=== PATIENT | male | born 1995 | race Caucasian/White ===

== ENCOUNTER 2018-07-28 04:52 | Emergency (ER) ==
[2018-07-28 05:05] VITALS: BP 145/81; BMI 23.1
[2018-07-28] MEDS ORDERED: ZOFRAN 4 MG/2 ML IVP STA (05:24)
[2018-07-28] MEDS ORDERED: MORPHINE 4 MG/ML VIAL IVP STA (05:24)
--- NOTE | 2018-07-28 05:31 | ED.PDOC ---
General Stated Complaint: Patient is a 23 year old male who comes to the ER with complaints of right lower quadrant pain radiating to the back. He has not been able to eat much. He has been vomiting multiple times last of which was at 3 am. Abdominal pain is worse. Time Seen by Physician: 05:28 Mode of Arrival: Ambulance Information Source: Patient Exam Limitations: No limitations Nursing and Triage Documentation Reviewed and Agree: Yes Does patient meet sepsis criteria?: Yes (Placed an order of Procalcitonin and Lactic acid and Blood cultures ) If yes, has appropriate treatment been initiated?: Yes (Normal saline ) System Inflammatory Response Syndrome: Pulse >90 BPM, Resp >20/Minute <ALEX KENNY - Last Filed: 07/28/18 06:48> <CISCO GALEAS - Last Filed: 07/28/18 08:30> ED Provider: Dr. CISCO GALEAS Chief Complaint: Abdominal Pain Primary Care Provider: CHIDI RANDALL Sepsis Protocol: For patient's 13 years and over: Temp is 96.8 and below OR 101 and greater Pulse >90 BPM Resp >20/minute Acutely Altered Mental Status Are patient's symptoms suggestive of a new infection, such as: -Pneumonia -Skin, Soft Tissue -Endocarditis -UTI -Bone, Joint Infection -Implantable Device -Acute Abdominal Infection -Wound Infection -Meningitis -Blood Stream Catheter Infection -Unknown GI Complaint Exam - Abdominal Pain Complaint/Exam Onset: Gradual Duration: 1 day Symptoms Are: Still present Timing: Constant Initial Severity: Moderate Current Severity: Severe Location of Pain: RLQ Radiates To: Reports: Flank Character: Reports: Aching, Throbbing Aggravating: Reports: Movement, Food Alleviating: Reports: None Associated Signs and Symptoms: Reports: Back pain, Nausea, Vomiting AAA Risk Factors: Reports: None Cardiac Risk Factors: Reports: None Testicular Torsion Risk Factors: Reports: None Surgical Obstruction Risk Factors: Reports: None Related Surgical History: Reports: None Abdominal Findings: Present: Rebound tenderness, Peritoneal signs, McBurney's Point tender, CVA Tenderness Differential Diagnoses: Appendicitis, Bowel Obstruction, Constipation, Diverticulitis, Other (Pyelonephritis) <ALEX KENNY - Last Filed: 07/28/18 06:48> Review of Systems - Review Of Systems Constitutional: Reports: Loss of appetite Eyes: Reports: No symptoms Ears, Nose, Mouth, Throat: Reports: No symptoms Respiratory: Reports: No symptoms Cardiac: Reports: No symptoms GI: Reports: Abdominal pain, Nausea, Poor appetite, Vomiting Musculoskeletal: Reports: Back pain (right flank area ) Skin: Reports: No symptoms Neurological: Reports: Anxiety Endocrine: Reports: No symptoms Hematologic/Lymphatic: Reports: No symptoms All Other Systems: Reviewed and Negative <BENJAMINMARBELLAALEX - Last Filed: 07/28/18 06:48> Past Medical History - Past Medical History Previously Healthy: Yes Endocrine: Reports: None Cardiovascular: Reports: Other (Heart murmur ) Respiratory: Reports: Asthma Hematological: Reports: None Gastrointestinal: Reports: None Genitourinary: Reports: None Neuro/Psych: Reports: Migraine, Anxiety, Depression, Other (ADHD ) Musculoskeletal: Reports: None Cancer: Reports: None - Surgical History General Surgical History: Reports: Orthopedic (right pinky finge ) - Family History Family History: Reports: Unknown - Social History Smoking Status: Current every day smoker, Light tobacco smoker Hx Substance Use: No Alcohol Screening: None - Immunizations Tetanus Shot up to Date: (UNKNOWN) <ALEX KENNY - Last Filed: 07/28/18 06:48> Physical Exam - Physical Exam Appearance: Ill-appearing Ill-appearing: Moderate Pain Distress: Severe Eyes: TIA, EOMI, Conjunctiva clear Neck: Supple Respiratory: Airway patent, Breath sounds clear, Breath sounds equal, Respirations nonlabored Cardiovascular: RRR, Pulses normal, No rub, No murmur GI/: No masses, Bowel sounds normal, Tender Musculoskeletal: Normal strength, ROM intact, No edema, No calf tenderness Skin: Warm, Dry, Normal color Neurological: Sensation intact, Motor intact, Cranial nerves intact, Alert, Oriented Psychiatric: Anxious <ALEX KENNY - Last Filed: 07/28/18 06:48> Interpretation - Radiology Interpretation Radiology Interpretation By: Radiologist Radiology Results: Positive (pyelonephritis) Exam Interpreted: CT Scan <ALEX KENNY - Last Filed: 07/28/18 06:48> - Gallery Host Rate: Normal Rhythm: Sinus Ectopy: None - EKG Interpretation Rate: Normal Rhythm: Sinus Ectopy: None [place]: NL ST Segment: Other (PTOLONED QT INTERVAL .) <CISCO GALEAS - Last Filed: 07/28/18 08:30> Re-Evaluation - Re-Evaluation Time of Re-Evaluation: 06:49 Status: Improved (pain better ) Vital Signs Stable: Yes <ALEX KENNY - Last Filed: 07/28/18 06:48> - Re-Evaluation Time of Re-Evaluation: 07:00 (ADAL TOOK OVER CARE AT 7AM EKG ORDERED SECOND LITTER OF FLUID INITATED , SECOND ANTIBIOTIC ORDERED ) Status: Improved Vital Signs Stable: Yes Pain Level: 5/10 RLQ Appearance: NAD Skin: Warm and Dry Neuro: Alert and Oriented X3 CV: RRR <TUYETANDREACISCO - Last Filed: 07/28/18 08:30> Physician Notification - Case Discussed Endorsed To/Discussed With: Dr Williamson Time of Discussion: 07:00 <EFRAÍNALEX - Last Filed: 07/28/18 06:48> - Case Discussed Physician Notified: jose manuel MACEDO Time of Notification: 08:30 (TRANSFER NOW) <ADALCISCO - Last Filed: 07/28/18 08:30> Critical Care Note - Critical Care Note Total Time (mins): 45 (sepsis managment.) <EFRAÍNALEX - Last Filed: 07/28/18 06:48> - Critical Care Note Total Time (mins): 1 <CISCO GALEAS - Last Filed: 07/28/18 08:30> Course - Course Hematology/Chemistry: 07/28/18 05:45 07/28/18 05:45 <EFRAÍNALEX - Last Filed: 07/28/18 06:48> - Course Hematology/Chemistry: 07/28/18 05:45 07/28/18 05:45 <CISCO GALEAS - Last Filed: 07/28/18 08:30> - Course Orders, Labs, Meds: Lab Review 07/28/18 07/28/18 07/28/18 05:45 05:45 05:45 WBC 22.94 H RBC 5.41 Hgb 16.6 Hct 46.1 MCV 85.2 MCH 30.7 MCHC 36.0 H RDW Coeff of Sera 12.1 Plt Count 222 Immature Gran % (Auto) 0.8 Neut % (Auto) 86.9 Lymph % (Auto) 3.9 L [place] % (Auto) 7.9 Eos % (Auto) 0.3 Baso % (Auto) 0.2 Immature Gran # (Auto) 0.2 Neut # (Auto) 19.9 H Lymph # (Auto) 0.9 [place] # (Auto) 1.8 Eos # (Auto) 0.1 Baso # (Auto) 0.1 Puncture Site O2 Saturation ABG pH ABG pCO2 ABG pO2 ABG HCO3 ABG Total CO2 ABG Base Excess Stone Test FiO2 % Sodium 139.0 Potassium 2.90 L Chloride 101.0 Carbon Dioxide 23.0 Anion Gap 17.90 BUN 12.0 Creatinine 0.90 Estimated GFR (MDRD) 107.00 BUN/Creatinine Ratio 13.33 Glucose 116.0 H Lactic Acid Calcium 10.30 H Total Bilirubin 1.30 AST 27.0 ALT 27.0 Alkaline Phosphatase 67.0 Total Protein 8.10 Albumin 4.70 Globulin 3.40 Albumin/Globulin Ratio 1.38 Amylase 49.0 Lipase 13.0 L Procalcitonin 18.36 Urine Color Urine Clarity Urine pH Ur Specific [place] Urine Protein Urine Glucose (UA) Urine Ketones Urine Blood Urine Nitrite Urine Bilirubin Urine Urobilinogen Ur Leukocyte Esterase Urine Microscopic RBC Urine Microscopic WBC Ur Squamous Epith Cells Ur Renal Epithelial Cell Urine Bacteria 07/28/18 07/28/18 07/28/18 05:45 06:30 07:22 WBC RBC Hgb Hct MCV MCH MCHC RDW Coeff of Sera Plt Count Immature Gran % (Auto) Neut % (Auto) Lymph % (Auto) [place] % (Auto) Eos % (Auto) Baso % (Auto) Immature Gran # (Auto) Neut # (Auto) Lymph # (Auto) [place] # (Auto) Eos # (Auto) Baso # (Auto) Puncture Site R brach O2 Saturation 98.0 ABG pH 7.426 ABG pCO2 32.3 L ABG pO2 97.0 ABG HCO3 21.3 L ABG Total CO2 22 ABG Base Excess -3 L Stone Test + FiO2 % 21.0 Sodium Potassium Chloride Carbon Dioxide Anion Gap BUN Creatinine Estimated GFR (MDRD) BUN/Creatinine Ratio Glucose Lactic Acid 2.40 H Calcium Total Bilirubin AST ALT Alkaline Phosphatase Total Protein Albumin Globulin Albumin/Globulin Ratio Amylase Lipase Procalcitonin Urine Color Dark Urine Clarity Slightly Urine pH >=9.0 Ur Specific [place] 1.015 Urine Protein 3+ Urine Glucose (UA) Negative Urine Ketones 3+ Urine Blood 2+ Urine Nitrite Negative Urine Bilirubin 1+ Urine Urobilinogen 1.0 Ur Leukocyte Esterase Trace Urine Microscopic RBC 20-30 Urine Microscopic WBC 0-2 Ur Squamous Epith Cells 0-2 Ur Renal Epithelial Cell 0-2 Urine Bacteria Trace Orders Category Date Time Status ABG DRAW REQUEST Stat CARDIO 07/28/18 07:22 Completed EKG-(ED ONLY) Stat CARDIO 07/28/18 07:21 Completed ED IV/MEDIPORT/POWERPORT .ONCE EMERGENCY 07/28/18 05:24 Active ABG Stat LAB 07/28/18 07:22 Completed AMYLASE Stat LAB 07/28/18 05:45 Completed BLOOD CULTURE (ED ONLY) Stat LAB 07/28/18 05:45 Received CBC W/ AUTO DIFF Stat LAB 07/28/18 05:45 Completed COMPREHENSIVE METABOLIC PANEL Stat LAB 07/28/18 05:45 Completed LACTIC ACID Stat LAB 07/28/18 05:45 Completed LIPASE Stat LAB 07/28/18 05:45 Completed PROCALCITONIN Stat LAB 07/28/18 05:45 Completed URINALYSIS C & S IF INDICATED Stat LAB 07/28/18 06:30 Completed 0.9 % Sodium Chloride [Saline Flush] MEDS 07/28/18 05:24 Active 1 syr IVF PRN PRN Hydromorphone HCl [Dilaudid 0.5 mg/0.5 ml Syringe] MEDS 07/28/18 07:24 Discontinued 0.5 mg IVP ONCE STA Hydromorphone HCl [Dilaudid 1 mg/ml Syringe] MEDS 07/28/18 06:11 Discontinued 1 mg IVP ONCE STA Levofloxacin/D5w [Levaquin] 100 ml MEDS 07/28/18 06:17 Discontinued IV .STK-MED Levofloxacin/D5w [Levaquin] 500 mg MEDS 07/28/18 06:10 Discontinued Premix 100 ml D5w 1 bag IV ONCE Morphine Sulfate [Morphine 4 mg/ml Syringe] MEDS 07/28/18 05:43 Discontinued 4 mg .ROUTE .STK-MED ONE Morphine Sulfate [Morphine 4 mg/ml Vial] MEDS 07/28/18 05:24 Discontinued 4 mg IVP ONCE STA Ondansetron HCl/Pf [Zofran 4 mg/2 ml] MEDS 07/28/18 05:24 Discontinued 4 mg IVP ONCE STA Piperacillin Sodium/Tazobactam [Zosyn 4.5 gm] 4.5 gm MEDS 07/28/18 07:20 Discontinued 0.9 % Sodium Chloride [Sodium Chloride] 100 ml IV ONCE Potassium Chloride [K-Dur] MEDS 07/28/18 06:54 Discontinued 40 meq PO ONCE STA Potassium Chloride [Potassium Chloride Premix Run] 10 MEDS 07/28/18 07:20 Discontinued meq Premix 100 ml Water 1 bag IV ONCE Potassium Chloride [Potassium Chloride Premix Run] 100 MEDS 07/28/18 07:32 Discontinued ml IV .STK-MED Ringers Lactated Solution [Lactated Ringers] 1,000 ml MEDS 07/28/18 06:22 Discontinued IV BOLUS Sodium Chloride 0.9% [Sodium Chloride] 1,000 ml MEDS 07/28/18 05:[address] ABD/PEL WO RENAL STONE PROT Stat RADS 07/28/18 05:24 Completed Medications Generic Name Dose Route Start Last Admin Trade Name Freq PRN Reason Stop Dose Admin Sodium Chloride 1 syr 07/28/18 05:24 Saline Flush IVF PRN PRN To flush IV Discontinued Medications Generic Name Dose Route Start Last Admin Trade Name Freq PRN Reason Stop Dose Admin Hydromorphone HCl 1 mg 07/28/18 06:11 07/28/18 06:20 Dilaudid 1 Mg/Ml Syringe IVP 07/28/18 06:12 1 mg ONCE STA Administration Hydromorphone HCl 0.5 mg 07/28/18 07:24 07/28/18 07:36 Dilaudid 0.5 Mg/0.5 Ml Syringe IVP 07/28/18 07:25 0.5 mg ONCE STA Administration Sodium Chloride 1,000 mls @ 1,000 mls/hr 07/28/18 05:49 07/28/18 05:45 Sodium Chloride IV 07/28/18 06:48 1,000 mls/hr BOLUS STA Administration Levofloxacin/Dextrose 500 mg/ 100 mls @ 100 mls/hr 07/28/18 06:10 07/28/18 06 :23 Dextrose IV 07/28/18 07:09 100 mls/hr ONCE STA Administration Lactated Ringer's 1,000 mls @ 1,000 mls/hr 07/28/18 06:22 07/28/18 06:49 Lactated Ringers IV 07/28/18 07:21 1,000 mls/hr BOLUS STA Administration Potassium Chloride 10 meq/ 100 mls @ 100 mls/hr 07/28/18 07:20 Sterile Water IV 07/28/18 08:19 ONCE STA Piperacillin Sod/Tazobactam 100 mls @ 100 mls/hr 07/28/18 07:20 07/28/18 07: 47 Sod 4.5 gm/ Sodium Chloride IV 07/28/18 08:19 100 mls/hr ONCE STA Administration Morphine Sulfate 4 mg 07/28/18 05:24 07/28/18 05:52 Morphine 4 Mg/Ml Vial IVP 07/28/18 05:25 Not Given ONCE STA Ondansetron HCl 4 mg 07/28/18 05:24 07/28/18 05:48 Zofran 4 Mg/2 Ml IVP 07/28/18 05:25 4 mg ONCE STA Administration Potassium Chloride 40 meq 07/28/18 06:54 07/28/18 07:06 K-Dur PO 07/28/18 06:55 40 meq ONCE STA Administration Vital Signs: Temp Pulse Resp BP Pulse Ox 07/28/18 06:34 98.4 F 07/28/18 04:53 97.2 F L 98 H 28 H 145/81 H 100 Departure - Departure Time of Disposition: 07:00 Pt referred to PMD for follow-up: Yes IPMP verified?: No <ALEX KENNY - Last Filed: 07/28/18 06:48> - Departure Disposition Discussed With: Patient <CISCO GALEAS - Last Filed: 07/28/18 08:30> - Departure Disposition: ADMITTED INPATIENT Discharge Problem: Pyelonephritis, Hypokalemia, Abdominal pain Sepsis Qualifiers: Sepsis type: sepsis due to unspecified organism Qualified Code(s): A41.9 - Sepsis, unspecified organism Condition: Good Allergies/Adverse Reactions: Allergies No Known Allergies Allergy (Verified 07/28/18 05:05) Home Medications: Ambulatory Orders Brexpiprazole [Rexulti] 1 mg PO DAILY 07/28/18 Escitalopram Oxalate [Lexapro] 20 mg PO DAILY 07/28/18 Prazosin HCl 2 mg PO BEDTIME 07/28/18 Quetiapine Fumarate [Seroquel] 50 mg PO BEDTIME 07/28/18
[2018-07-28] MEDS ORDERED: MORPHINE 4 MG/ML SYRINGE ONE (05:43)
[2018-07-28] MEDS ORDERED: SODIUM CHLORIDE 1,000 ML IV STA ×2 (05:49→08:31)
[2018-07-28] MEDS ORDERED: LEVAQUIN 500 MG in PREMIX 100 ML D5W 1 BAG IV STA (06:10)
[2018-07-28] MEDS ORDERED: DILAUDID 1 MG/ML SYRINGE IVP STA (06:11)
[2018-07-28] MEDS ORDERED: LEVAQUIN 100 ML IV ONE (06:17)
--- NOTE | 2018-07-28 06:17 | CT ---
EXAM: CT scan abdomen pelvis without contrast HISTORY: Right-sided pain COMPARISON: None. FINDINGS: Contiguous axial images obtained from lung bases to the symphysis pubis without contrast u tilizing 3-mm collimation. Sagittal and coronal reconstructions were imaged and reviewed. Visualized lung bases are clear. There is trace pericardial effusion measuring 7 mm. The gallbladder is fluid filled without cholelithiasis. There is mild fatty infiltration of the liver with enlargement of the right lobe which may represent normal variant. The pancreas, spleen and adrenal glands have normal unenhanced CT appearance The abdominal aorta is normal in course and caliber.. There is partial vis ualization of the appendix which appears normal. There is abnormal thickening with surrounding inflam mation involving the hepatic flexure and distal descending colon suggesting colitis. The left kidney is unremarkable. Mild inflammatory changes are seen adjacent to the right renal hilum and proximal u reter with stranding and fluid inferiorly within the perinephric space. No discrete bladder abnorma lities identified. IMPRESSION: Trace pericardial effusion. Inflammatory changes are seen adjacent to the right renal hilum with associated perinephric fluid and inflammation without hydronephrosis or nephrolithiasis.. Consider pyelonephritis. Thickening and inflammation is seen at the level of the hepatic flexure and distal ascending colon crespo ggesting colitis. There is partial visualization of the appendix which appears normal. Results were conveyed via telephone to the emergency room physician 6:12 a.m. 07/28/2018
[2018-07-28] MEDS ORDERED: LACTATED RINGERS 1,000 ML IV STA (06:22)
[2018-07-28 06:35] VITALS: TEMP 98.4
[2018-07-28] MEDS ORDERED: K-DUR PO STA (06:54)
[2018-07-28] MEDS ORDERED: ZOSYN 4.5 GM 4.5 GM in SODIUM CHLORIDE 100 ML IV STA (07:20)
[2018-07-28] MEDS ORDERED: POTASSIUM CHLORIDE PREMIX RUN 10 MEQ in PREMIX 100 ML WATER 1 BAG IV STA (07:20)
[2018-07-28] MEDS ORDERED: DILAUDID 0.5 MG/0.5 ML SYRINGE IVP STA (07:24)
[2018-07-28] MEDS ORDERED: POTASSIUM CHLORIDE PREMIX RUN 100 ML IV ONE (07:32)
== END 2018-07-28 09:10 | disposition short-term general hospital (02) ==
LOC: ED 04:52
DX: N12 Tubulo-interstitial nephritis, not specified as acute or chronic (principal); A41.9 Sepsis, unspecified organism; E87.6 Hypokalemia; R10.9 Unspecified abdominal pain; M54.9 Dorsalgia, unspecified; F17.210 Nicotine dependence, cigarettes, uncomplicated
CPT/HCPCS: 36415; 74176; 80053; 81001; 82150; 82803; 83605; 83690; 84145; 85025; 87040; 87070; 87186; 93005; 93010; 96361; 96365; 96367; 96368; 96375; 96376; 99285

== ENCOUNTER 2018-07-28 09:15 | Outpatient (CLI) ==
[2018-07-28 05:05] VITALS: BMI 23.1
== END 2018-07-28 09:38 | disposition short-term general hospital (02) ==
LOC: AMBL 09:15
PROVIDERS: ATTEND Internal Medicine
DX: A41.9 Sepsis, unspecified organism (principal); E87.6 Hypokalemia; N12 Tubulo-interstitial nephritis, not specified as acute or chronic; R10.31 Right lower quadrant pain; R11.10 Vomiting, unspecified

== ENCOUNTER 2018-09-25 14:01 | Outpatient (CLI) | END 2018-09-25 14:18 | disposition short-term general hospital (02) | LOC: AMBL 14:01 | PROVIDERS: ATTEND Emergency Medicine | DX: T81.89XA Other complications of procedures, not elsewhere classified, initial encounter (principal) ==